=== PATIENT | female | born 1995 | race Caucasian/White ===

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

== ENCOUNTER 2017-02-10 17:32 | Emergency (ER) | payer SELFPAY ==
--- NOTE | 2017-02-10 17:51 | ED NURSING NOTES ---
Clinical Report - Nurses [facility] [address] [place] [address] 02/10/2017 17:32 Patient: PARKER ALICIA V TRIAGE Triage time 17:30. Acuity: LEVEL 4. Chief Complaint: SKIN RASH. 17:42 02/10/17. Alert. No acute distress. SEPSIS SCREEN: Sepsis Screen. Negative (no infection suspected/documented). --17:43 Prabha Quinones R.N. 17:36 02/10/17. BP: 133/71. HR: 104. RR: 15. O2 saturation: 96%. Temp: 98.1 F. Pain level now: 03/23. --17:43 Prabha Quinones R.N. Weight: 47.6 kg stated. Height/Length: 60 inches Per Patient. BMI: 20.5. Growth Chart Percentile: Weight: 8.3%. Height/Length: 4.7%. --17:42 Prabha Quinones R.N. Medications None. --17:39 Prabha Quinones R.N. Allergies No Known Drug Allergy. --17:39 Prabha Quinones R.N. History Historian: patient. Arrived in police custody. Primary physician (Dr Almeida). Reported as generalized in location. Onset. (1 month ago). It is described as itchy and painful. ( patient states she has had MRSA before. She believes the rash she has is MRSA. She states the rash began on her neck when she was in correction and has since spread to the rest of her body.). Not burning. Treatment CATERING SERVER: (neosporin). PAST MEDICAL HX: Immunizations: status is unknown. ( Patient states she has not had a period since giving to her son 9 months ago.). SOCIAL HX: Light tobacco smoker- less than 1/2 a pack per day. History of drug use: heroin, methamphetamines. Recently used drugs yesterday. No alcohol use. FALL RISK ASSESSMENT: Fall risk assessment completed. No fall risk identified. NUTRITIONAL RISK ASSESSMENT: The nutritional risk assessment revealed no deficiencies. FUNCTIONAL ASSESSMENT: Functional assessment: no impairments noted. LEARNING NEEDS ASSESSMENT: The learning needs assessment revealed no barriers. ABUSE ASSESSMENT: Abuse assessment: (patient states she does not have a home. She stays with her mom and feels safe at her mom's home.). SKIN INTEGRITY ASSESSMENT: Skin integrity risk assessment completed. No skin integrity risk identified. --17:43 Prabha Quinones R.N. PROBLEMS: Laceration. Abscess. Felon. . UTI - Urinary Tract Infection. Substance Abuse. Suicide Attempt. Hypertension. Atypical Chest Pain. Drug Poisoning. Headache. Immunizations. LNMP - Last Normal Menstrual Period. --17:51 Prabha Quinones R.N. MRSA Infection. --17:52 Prabha Quinones R.N. ADDITIONAL SURGERIES: Throat surgery. --17:51 Prabha Quinones R.N. Interventions ID band on patient. To treatment room. --17:43 Prabha Quinones R.N. PHYSICAL ASSESSMENT 17:45 02/10/17. Ambulatory to room. GENERAL / NEURO / PSYCH: Alert. The patient does not appear to be in acute distress. Oriented X 4. HEENT: Mucous membranes are pink. RESPIRATORY: Respirations not labored. CVS: Capillary refill less than 2 seconds. SKIN: Skin is warm and dry. Generalized vesicular, urticarial, crusting, excoriated skin rash with an erythematous base present. --17:45 Prabha Quinones R.N. NURSING PROGRESS NOTES 17:45 02/10/17. Two patient identifiers checked. Call light placed in reach. Side rails up x 2. Bed placed in lowest position. Brakes of bed on. ( Patient has cuff on L wrist placed by police shift commander). --17:45 Prabha Quinones R.N. DISPOSITION / DISCHARGE 17:57 02/10/17. No learning barriers present. Discharge instructions provided and reviewed with the patient. Reviewed warnings. Reviewed medication(s). Treatments reviewed. Patient verbalized understanding. Written instructions provided in Korean. The patient was discharged by the nurse practitioner. She was discharged home and accompanied by a police escort. She left the Emergency Department ambulatory and via police department vehicle. --17:58 Prabha Quinones R.N. 17:36 02/10/17. BP: 133/71. HR: 104. RR: 15. O2 saturation: 96%. Temp: 98.1 F. Pain level now: 03/23. --17:58 Prabha Quinones R.N. Locked/Released at 02/10/2017 18:01 by Prabha Quinones R.N.
--- NOTE | 2017-02-10 17:51 | ED NURSING NOTES ---
Clinical Report - Nurses [facility] [address] [place] [address] 02/10/2017 17:32 Patient: PARKER ALICIA V TRIAGE Triage time 17:30. Acuity: LEVEL 4. Chief Complaint: SKIN RASH. 17:42 02/10/17. Alert. No acute distress. SEPSIS SCREEN: Sepsis Screen. Negative (no infection suspected/documented). --17:43 Prabha Quinones R.N. 17:36 02/10/17. BP: 133/71. HR: 104. RR: 15. O2 saturation: 96%. Temp: 98.1 F. Pain level now: 03/23. --17:43 Prabha Quinones R.N. Weight: 47.6 kg stated. Height/Length: 60 inches Per Patient. BMI: 20.5. Growth Chart Percentile: Weight: 8.3%. Height/Length: 4.7%. --17:42 Prabha Quinones R.N. Medications None. --17:39 Prabha Quinones R.N. Allergies No Known Drug Allergy. --17:39 Prabha Quinones R.N. History Historian: patient. Arrived in police custody. Primary physician (Dr Almeida). Reported as generalized in location. Onset. (1 month ago). It is described as itchy and painful. ( patient states she has had MRSA before. She believes the rash she has is MRSA. She states the rash began on her neck when she was in [facility] and has since spread to the rest of her body.). Not burning. Treatment CLOUD SERVICES ARCHITECT: (neosporin). PAST MEDICAL HX: Immunizations: status is unknown. ( Patient states she has not had a period since giving to her son 9 months ago.). SOCIAL HX: Light tobacco smoker- less than 1/2 a pack per day. History of drug use: heroin, methamphetamines. Recently used drugs yesterday. No alcohol use. FALL RISK ASSESSMENT: Fall risk assessment completed. No fall risk identified. NUTRITIONAL RISK ASSESSMENT: The nutritional risk assessment revealed no deficiencies. FUNCTIONAL ASSESSMENT: Functional assessment: no impairments noted. LEARNING NEEDS ASSESSMENT: The learning needs assessment revealed no barriers. ABUSE ASSESSMENT: Abuse assessment: (patient states she does not have a home. She stays with her mom and feels safe at her mom's home.). SKIN INTEGRITY ASSESSMENT: Skin integrity risk assessment completed. No skin integrity risk identified. --17:43 Prabha Quinones R.N. PROBLEMS: Laceration. Abscess. Felon. . UTI - Urinary Tract Infection. Substance Abuse. Suicide Attempt. Hypertension. Atypical Chest Pain. Drug Poisoning. Headache. Immunizations. LNMP - Last Normal Menstrual Period. --17:51 Prabha Quinones R.N. MRSA Infection. --17:52 Prabha Quinones R.N. ADDITIONAL SURGERIES: Throat surgery. --17:51 Prabha Quinones R.N. Interventions ID band on patient. To treatment room. --17:43 Prabha Quinones R.N. PHYSICAL ASSESSMENT 17:45 02/10/17. Ambulatory to room. GENERAL / NEURO / PSYCH: Alert. The patient does not appear to be in acute distress. Oriented X 4. HEENT: Mucous membranes are pink. RESPIRATORY: Respirations not labored. CVS: Capillary refill less than 2 seconds. SKIN: Skin is warm and dry. Generalized vesicular, urticarial, crusting, excoriated skin rash with an erythematous base present. --17:45 Prabha Quinones R.N. NURSING PROGRESS NOTES 17:45 02/10/17. Two patient identifiers checked. Call light placed in reach. Side rails up x 2. Bed placed in lowest position. Brakes of bed on. ( Patient has cuff on L wrist placed by police officer crime prevention). --17:45 Prabha Quinones R.N. DISPOSITION / DISCHARGE 17:57 02/10/17. No learning barriers present. Discharge instructions provided and reviewed with the patient. Reviewed warnings. Reviewed medication(s). Treatments reviewed. Patient verbalized understanding. Written instructions provided in Czech. The patient was discharged by the nurse practitioner. She was discharged home and accompanied by a police escort. She left the Emergency Department ambulatory and via police department vehicle. --17:58 Prabha Quinones R.N. 17:36 02/10/17. BP: 133/71. HR: 104. RR: 15. O2 saturation: 96%. Temp: 98.1 F. Pain level now: 03/23. --17:58 Prabha Quinones R.N. Locked/Released at 02/10/2017 18:01 by Prabha Quinones R.N.
--- NOTE | 2017-02-10 17:51 | ED CLINICAL REPORT ---
Clinical Report - Physicians/Mid Levels [facility] [address] [place] [address] 02/10/2017 17:32 Patient: PARKER ALICIA V Time Seen: 17:45; initial patient contact, initial documentation, patient care assumed. Arrived- In handcuffs. Police present. Historian- patient. HISTORY OF PRESENT ILLNESS Chief Complaint: SKIN RASH. This started about 1 months ago and is still present. It is described as itchy and painful. It has been generalized in location. No cause has been identified. Similar symptoms previously: Frequently, as bad. Recent medical care: Not recently seen/assessed. REVIEW OF SYSTEMS No fever. All systems otherwise negative, except as recorded above. PAST HISTORY See nurses notes. PROBLEMS: UTI - Urinary Tract Infection. Substance Abuse. Suicide Attempt. Hypertension. Atypical Chest Pain. Drug Poisoning. Headache. --21:51 Annie Ness R.N. ADDITIONAL SURGERIES: Throat surgery. --21:51 Annie Ness R.N. SOCIAL HISTORY Light tobacco smoker. Occasional alcohol use. History of heavy IV drug use: heroin, methamphetamines. Recently used drugs. No recent travel. Is a local resident. FAMILY HISTORY Negative. ADDITIONAL NOTES The nursing notes have been reviewed with agreement regarding the chief complaint, HPI, ROS, PMH and patient medications and allergies. PHYSICAL EXAM Vital Signs: 02/10/2017 17:36 BP: 133/71. HR: 104. RR: 15. O2 saturation: 96%. Temp: 98.1 F. Pain level now: 6/10. Have been reviewed as abnormal and appear to be correct. Blood pressure normal. Tachycardic. Respiratory rate normal. Temperature normal. Oxygen saturation normal. Appearance: Alert. Oriented X3. No acute distress. Eyes: Pupils equal, round and reactive to light. Conjunctivae and eyelids normal. ENT: Ears normal. Nose normal. Pharynx normal. Neck: Neck supple. Respiratory: No respiratory distress. Skin: Skin warm and dry. Normal skin color. Rash present. Normal skin turgor. Generalized moderate, erythematous, macular, papular, crusting skin rash with an erythematous base present- multiple scabs and yellow crusts noted on face, neck, trunk, arms, legs with excoriations and iv track fox. Extremities: Normal external inspection. Extremities nontender. Neuro: Oriented X 3. No motor deficit. No sensory deficit. PROGRESS AND PROCEDURES Patient counseled in person regarding the patient's stable condition and diagnosis. Differential Diagnosis: Other possible considerations: substance abuse, scabies, mrsa, cellulitis, insect bites/stings, abscess, fungus, dermatititis. Above considerations are based on history and physical exam. Differential diagnosis was discussed with patient. Disposition: Discharged home in good and unchanged condition (17:51). Condition: good and stable. CLINICAL IMPRESSION Nonbullous impetigo INSTRUCTIONS (patient is medically cleared to go with police to shelter). Warnings: GENERAL WARNINGS: Return or contact your physician immediately if your condition worsens or changes unexpectedly, if not improving as expected, or if other problems arise. Specifically return if problem worsens. Prescription Medications: Bactrim DS 800 mg / 160 mg: take 1 tablet orally every 12 hours for 10 days. No refill. Bactroban 2% ointment: apply small amount to affected area three times daily for 5 days. Dispense twenty-two (22) grams. No refills. Substitution is permissible. Follow-up: Follow up with your doctor in about five days as needed. Call for an appointment. Summary of care provided to patient. Understanding of the discharge instructions verbalized by patient. (Electronically signed by Shey Almazan A.R.N.P. 02/10/2017 18:21)
--- NOTE | 2017-02-10 18:21 | ED DISCHARGE INSTRUCTIONS ---
Patient: PARKER ALICIA V General Instructions [facility] VisitID: [id number] [place] [address] 21y, F Registration Date/Time: 02/10/2017 Nonbullous impetigo INSTRUCTIONS (patient is medically cleared to go with police to assisted). Warnings: GENERAL WARNINGS: Return or contact your physician immediately if your condition worsens or changes unexpectedly, if not improving as expected, or if other problems arise. Specifically return if problem worsens. Prescription Medications: Bactrim DS 800 mg / 160 mg: take 1 tablet orally every 12 hours for 10 days. No refill. Bactroban 2% ointment: apply small amount to affected area three times daily for 5 days. Dispense twenty-two (22) grams. No refills. Substitution is permissible. Follow-up: Follow up with your doctor in about five days as needed. Call for an appointment. Summary of care provided to patient. Understanding of the discharge instructions verbalized by patient. ADDITIONAL INFORMATION Impetigo Impetigo is the name for a bacterial infection of the skin. It is common in children. It may start as an infected insect bite or scratch and spread rapidly to other areas of the body. It is contagious and can be given to other children by touching. The sores usually have a gutierrez brown crust and grow gradually larger as they spread. Impetigo requires treatment with an antibiotic. Home care The following guidelines will help you care for your infection at home: Trim fingernails and cover sores with an adhesive bandage if necessary to prevent scratching. Picking at the sores may leave a scar. Wash hands (yours and your child's) often. This will avoid spreading the infection to other parts of the body and to other children. Do not let your child share washcloths, towels, pillows, sheets, or clothes with others. Wash these items in hot water before using again. The sores should be washed three times a day with soap and water. Use a washcloth to scrub the sores and remove the crust. Then apply an antibacterial cream as directed. If antibiotic pills or liquid was prescribed, be sure your child takes all the medicine until it is gone. Your child should stay out of school until completing two full days of antibiotic treatment. Use acetaminophen for fever, fussiness or discomfort, unless another medicine was prescribed. In infants over six months of age, you may use ibuprofen instead of acetaminophen. If your child has chronic liver or kidney disease or has ever had a stomach ulcer or GI bleeding, talk with your doctor before using these medicines. (Aspirin should never be used in anyone under 18 years of age who is ill with a fever. It may cause severe liver damage. Follow-up care Follow up with your doctor or this facility if the sores continue to spread after three days of treatment. It will take about 710 days to heal completely. When to seek medical care Get prompt medical attention if any of the following occur: Increasing number of sores or spreading areas of redness after two days of treatment with antibiotics Increasing swelling, or pain Fever of 100.4F (38C) oral or 101.4F (38.5C) rectal or higher, not better with fever medication Increased amounts of fluid or pus coming from the sores Unusual drowsiness, weakness, or change in behavior Loss of appetite or vomiting Cellulitis You have an infection of the skin known as cellulitis. This usually starts with a scrape, cut, insect bite, blister or other opening in the skin which becomes infected. This is a serious condition. It must be watched closely to be sure the infection is not spreading. With antibiotic treatment, the size of the red area will gradually shrink in size until the skin returns to normal. This will take 7-10 days. The red area should never increase in size once the antibiotic medicine has been started. Occasionally, an infection will be resistant to one antibiotic and another one will have to be used. Home Care: 1) Limit the use of the affected part, since excess movement can cause the infection to spread. 2) If the infection is on your leg, walk as little as possible during the first few days of the treatment. Keep your leg elevated while sitting. This will reduce swelling. 3) Take all of the antibiotic medicine exactly as directed until it is gone. Be careful not to miss any doses, especially during the first seven days. Follow Up with your doctor or this facility as directed. Check the infected area daily for the warning signs listed below. Get Prompt Medical Attention if any of the following occur: -- Spreading area of redness -- Increasing swelling or pain -- Appearance of pus or drainage -- Fever over 100.4 F (38.0 C) oral, or over 101.4 F (38.6 C) rectal, after two days on antibiotics Sulfamethoxazole, Trimethoprim Oral tablet What is this medicine? SULFAMETHOXAZOLE; TRIMETHOPRIM or SMX-TMP (suhl fuh meth OK jesse zohl; trye METH oh prim) is a combination of a sulfonamide antibiotic and a second antibiotic, trimethoprim. It is used to treat or prevent certain kinds of bacterial infections. It will not work for colds, flu, or other viral infections. How should I use this medicine? Take this medicine by mouth with a full glass of water. Follow the directions on the prescription label. Take your medicine at regular intervals. Do not take it more often than directed. Do not skip doses or stop your medicine early. Talk to your embroiderer regarding the use of this medicine in children. Special care may be needed. This medicine has been used in children as young as 2 months of age. What side effects may I notice from receiving this medicine? Side effects that you should report to your doctor or health behavioral health care manager as soon as possible: allergic reactions like skin rash or hives, swelling of the face, lips, or tongue breathing problems fever or chills, sore throat irregular heartbeat, chest pain joint or muscle pain pain or difficulty passing urine red pinpoint spots on skin redness, blistering, peeling or loosening of the skin, including inside the mouth unusual bleeding or bruising unusually weak or tired yellowing of the eyes or skin Side effects that usually do not require medical attention (report to your doctor or health behavioral health care manager if they continue or are bothersome): diarrhea dizziness headache loss of appetite nausea, vomiting nervousness What may interact with this medicine? Do not take this medicine with any of the following medications: aminobenzoate potassium dofetilide metronidazole This medicine may also interact with the following medications: VIKAS inhibitors like benazepril, enalapril, lisinopril, and ramipril cyclosporine digoxin diuretics indomethacin medicines for diabetes methenamine methotrexate phenytoin potassium supplements pyrimethamine sulfinpyrazone tricyclic antidepressants warfarin What if I miss a dose? If you miss a dose, take it as soon as you can. If it is almost time for your next dose, take only that dose. Do not take double or extra doses. Where should I keep my medicine? Keep out of the reach of children. Store at room temperature between 20 to 25 degrees C (68 to 77 degrees F). Protect from light. Throw away any unused medicine after the expiration date. What should I tell my health care provider before I take this medicine? They need to know if you have any of these conditions: anemia asthma being treated with anticonvulsants if you frequently drink alcohol containing drinks kidney disease liver disease low level of folic acid or [id number] dehydrogenase poor nutrition or malabsorption porphyria severe allergies thyroid disorder an unusual or allergic reaction to sulfamethoxazole, trimethoprim, sulfa drugs, other medicines, foods, dyes, or preservatives or trying to get breast-feeding What should I watch for while using this medicine? Tell your doctor or health behavioral health care manager if your symptoms do not improve. Drink several glasses of water a day to reduce the risk of kidney problems. Do not treat diarrhea with over the counter products. Contact your doctor if you have diarrhea that lasts more than 2 days or if it is severe and watery. This medicine can make you more sensitive to the sun. Keep out of the sun. If you cannot avoid being in the sun, wear protective clothing and use a sunscreen. Do not use sun lamps or tanning beds/booths. Mupirocin Topical ointment What is this medicine? MUPIROCIN (myoo PEER oh sin) is an antibiotic. It is used on the skin to treat skin infections. How should I use this medicine? This medicine is for external use only. Follow the directions on the prescription label. Wash your hands before and after use. Before applying, wash the affected area with mild soap and water and pat dry. Apply a small amount to the affected area and rub gently. You can cover the area with a gauze dressing. Do not get this medicine in your eyes. If you do, rinse out with plenty of cool tap water. Do not use your medicine more often than directed. Finish the full course of medicine prescribed by your doctor or health behavioral health care manager even if you think your condition is better. Do not use over large areas of burnt skin. Talk to your embroiderer regarding the use of this medicine in children. Special care may be needed. What side effects may I notice from receiving this medicine? Side effects that you should report to your doctor or health behavioral health care manager as soon as possible: skin rash, redness, continued swelling, burning, itching, stinging, or pain Side effects that usually do not require medical attention (report to your doctor or health behavioral health care manager if they continue or are bothersome): dry skin, itching What may interact with this medicine? Interactions are not expected. Do not use any other skin products on the affected area without telling your doctor or health behavioral health care manager. What if I miss a dose? If you miss a dose, take it as soon as you can. If it is almost time for your next dose, take only that dose. Do not take double or extra doses. Where should I keep my medicine? Keep out of the reach of children. Store at room temperature between 20 and 25 degrees C (68 and 77 degrees F). Throw away any unused medicine after the expiration date. What should I tell my health care provider before I take this medicine? They need to know if you have any of these conditions: an unusual or allergic reaction to mupirocin, polyethylene glycol (PEG), or other topical antibiotic medicine or trying to get breast-feeding What should I watch for while using this medicine? Tell your doctor or health behavioral health care manager if your skin condition does not begin to improve within 3 to 5 days. You have been given the following additional information: Impetigo (Child) Cellulitis Sulfamethoxazole, Trimethoprim Oral tablet Mupirocin Topical ointment (Electronically signed by Shey Almazan A.R.N.P. 02/10/2017 18:21)
--- NOTE | 2017-02-10 18:21 | ED DISCHARGE INSTRUCTIONS ---
Patient: PARKER ALICIA V General Instructions [facility] VisitID: [id number] [place] [address] 21y, F Registration Date/Time: 02/10/2017 Nonbullous impetigo INSTRUCTIONS (patient is medically cleared to go with police to skilled nursing). Warnings: GENERAL WARNINGS: Return or contact your physician immediately if your condition worsens or changes unexpectedly, if not improving as expected, or if other problems arise. Specifically return if problem worsens. Prescription Medications: Bactrim DS 800 mg / 160 mg: take 1 tablet orally every 12 hours for 10 days. No refill. Bactroban 2% ointment: apply small amount to affected area three times daily for 5 days. Dispense twenty-two (22) grams. No refills. Substitution is permissible. Follow-up: Follow up with your doctor in about five days as needed. Call for an appointment. Summary of care provided to patient. Understanding of the discharge instructions verbalized by patient. ADDITIONAL INFORMATION Impetigo Impetigo is the name for a bacterial infection of the skin. It is common in children. It may start as an infected insect bite or scratch and spread rapidly to other areas of the body. It is contagious and can be given to other children by touching. The sores usually have a gutierrez brown crust and grow gradually larger as they spread. Impetigo requires treatment with an antibiotic. Home care The following guidelines will help you care for your infection at home: Trim fingernails and cover sores with an adhesive bandage if necessary to prevent scratching. Picking at the sores may leave a scar. Wash hands (yours and your child's) often. This will avoid spreading the infection to other parts of the body and to other children. Do not let your child share washcloths, towels, pillows, sheets, or clothes with others. Wash these items in hot water before using again. The sores should be washed three times a day with soap and water. Use a washcloth to scrub the sores and remove the crust. Then apply an antibacterial cream as directed. If antibiotic pills or liquid was prescribed, be sure your child takes all the medicine until it is gone. Your child should stay out of school until completing two full days of antibiotic treatment. Use acetaminophen for fever, fussiness or discomfort, unless another medicine was prescribed. In infants over six months of age, you may use ibuprofen instead of acetaminophen. If your child has chronic liver or kidney disease or has ever had a stomach ulcer or GI bleeding, talk with your doctor before using these medicines. (Aspirin should never be used in anyone under 18 years of age who is ill with a fever. It may cause severe liver damage. Follow-up care Follow up with your doctor or this facility if the sores continue to spread after three days of treatment. It will take about 710 days to heal completely. When to seek medical care Get prompt medical attention if any of the following occur: Increasing number of sores or spreading areas of redness after two days of treatment with antibiotics Increasing swelling, or pain Fever of 100.4F (38C) oral or 101.4F (38.5C) rectal or higher, not better with fever medication Increased amounts of fluid or pus coming from the sores Unusual drowsiness, weakness, or change in behavior Loss of appetite or vomiting Cellulitis You have an infection of the skin known as cellulitis. This usually starts with a scrape, cut, insect bite, blister or other opening in the skin which becomes infected. This is a serious condition. It must be watched closely to be sure the infection is not spreading. With antibiotic treatment, the size of the red area will gradually shrink in size until the skin returns to normal. This will take 7-10 days. The red area should never increase in size once the antibiotic medicine has been started. Occasionally, an infection will be resistant to one antibiotic and another one will have to be used. Home Care: 1) Limit the use of the affected part, since excess movement can cause the infection to spread. 2) If the infection is on your leg, walk as little as possible during the first few days of the treatment. Keep your leg elevated while sitting. This will reduce swelling. 3) Take all of the antibiotic medicine exactly as directed until it is gone. Be careful not to miss any doses, especially during the first seven days. Follow Up with your doctor or this facility as directed. Check the infected area daily for the warning signs listed below. Get Prompt Medical Attention if any of the following occur: -- Spreading area of redness -- Increasing swelling or pain -- Appearance of pus or drainage -- Fever over 100.4 F (38.0 C) oral, or over 101.4 F (38.6 C) rectal, after two days on antibiotics Sulfamethoxazole, Trimethoprim Oral tablet What is this medicine? SULFAMETHOXAZOLE; TRIMETHOPRIM or SMX-TMP (suhl fuh meth OK jesse zohl; trye METH oh prim) is a combination of a sulfonamide antibiotic and a second antibiotic, trimethoprim. It is used to treat or prevent certain kinds of bacterial infections. It will not work for colds, flu, or other viral infections. How should I use this medicine? Take this medicine by mouth with a full glass of water. Follow the directions on the prescription label. Take your medicine at regular intervals. Do not take it more often than directed. Do not skip doses or stop your medicine early. Talk to your sand shoveler regarding the use of this medicine in children. Special care may be needed. This medicine has been used in children as young as 2 months of age. What side effects may I notice from receiving this medicine? Side effects that you should report to your doctor or health infant caregiver as soon as possible: allergic reactions like skin rash or hives, swelling of the face, lips, or tongue breathing problems fever or chills, sore throat irregular heartbeat, chest pain joint or muscle pain pain or difficulty passing urine red pinpoint spots on skin redness, blistering, peeling or loosening of the skin, including inside the mouth unusual bleeding or bruising unusually weak or tired yellowing of the eyes or skin Side effects that usually do not require medical attention (report to your doctor or health infant caregiver if they continue or are bothersome): diarrhea dizziness headache loss of appetite nausea, vomiting nervousness What may interact with this medicine? Do not take this medicine with any of the following medications: aminobenzoate potassium dofetilide metronidazole This medicine may also interact with the following medications: VIKAS inhibitors like benazepril, enalapril, lisinopril, and ramipril cyclosporine digoxin diuretics indomethacin medicines for diabetes methenamine methotrexate phenytoin potassium supplements pyrimethamine sulfinpyrazone tricyclic antidepressants warfarin What if I miss a dose? If you miss a dose, take it as soon as you can. If it is almost time for your next dose, take only that dose. Do not take double or extra doses. Where should I keep my medicine? Keep out of the reach of children. Store at room temperature between 20 to 25 degrees C (68 to 77 degrees F). Protect from light. Throw away any unused medicine after the expiration date. What should I tell my health care provider before I take this medicine? They need to know if you have any of these conditions: anemia asthma being treated with anticonvulsants if you frequently drink alcohol containing drinks kidney disease liver disease low level of folic acid or [id number] dehydrogenase poor nutrition or malabsorption porphyria severe allergies thyroid disorder an unusual or allergic reaction to sulfamethoxazole, trimethoprim, sulfa drugs, other medicines, foods, dyes, or preservatives or trying to get breast-feeding What should I watch for while using this medicine? Tell your doctor or health infant caregiver if your symptoms do not improve. Drink several glasses of water a day to reduce the risk of kidney problems. Do not treat diarrhea with over the counter products. Contact your doctor if you have diarrhea that lasts more than 2 days or if it is severe and watery. This medicine can make you more sensitive to the sun. Keep out of the sun. If you cannot avoid being in the sun, wear protective clothing and use a sunscreen. Do not use sun lamps or tanning beds/booths. Mupirocin Topical ointment What is this medicine? MUPIROCIN (myoo PEER oh sin) is an antibiotic. It is used on the skin to treat skin infections. How should I use this medicine? This medicine is for external use only. Follow the directions on the prescription label. Wash your hands before and after use. Before applying, wash the affected area with mild soap and water and pat dry. Apply a small amount to the affected area and rub gently. You can cover the area with a gauze dressing. Do not get this medicine in your eyes. If you do, rinse out with plenty of cool tap water. Do not use your medicine more often than directed. Finish the full course of medicine prescribed by your doctor or health infant caregiver even if you think your condition is better. Do not use over large areas of burnt skin. Talk to your sand shoveler regarding the use of this medicine in children. Special care may be needed. What side effects may I notice from receiving this medicine? Side effects that you should report to your doctor or health infant caregiver as soon as possible: skin rash, redness, continued swelling, burning, itching, stinging, or pain Side effects that usually do not require medical attention (report to your doctor or health infant caregiver if they continue or are bothersome): dry skin, itching What may interact with this medicine? Interactions are not expected. Do not use any other skin products on the affected area without telling your doctor or health infant caregiver. What if I miss a dose? If you miss a dose, take it as soon as you can. If it is almost time for your next dose, take only that dose. Do not take double or extra doses. Where should I keep my medicine? Keep out of the reach of children. Store at room temperature between 20 and 25 degrees C (68 and 77 degrees F). Throw away any unused medicine after the expiration date. What should I tell my health care provider before I take this medicine? They need to know if you have any of these conditions: an unusual or allergic reaction to mupirocin, polyethylene glycol (PEG), or other topical antibiotic medicine or trying to get breast-feeding What should I watch for while using this medicine? Tell your doctor or health infant caregiver if your skin condition does not begin to improve within 3 to 5 days. You have been given the following additional information: Impetigo (Child) Cellulitis Sulfamethoxazole, Trimethoprim Oral tablet Mupirocin Topical ointment (Electronically signed by Shey Almazan A.R.N.P. 02/10/2017 18:21)
--- NOTE | 2017-02-10 18:21 | ED MED RECONCILIATION SUMMARY ---
Patient: PARKER ALICIA V Medication Reconciliation Report VisitID: [id number] [place] [address] 21y, F Registration Date/Time: 02/10/2017 Weight: 47.6 kg Height/Length: 60 in. BMI: 20.5 ALLERGIES: No Known Drug Allergy The patient's Home Medications are listed below: NONE. The source(s) of the original Home Medication information: Not obtained. The following Medications were given to the patient in the Emergency Department: None. The following Medications were prescribed to the patient: Bactrim DS 800 mg / 160 mg: take 1 tablet orally every 12 hours for 10 days. No refill. -- Shey Almazan A.R.N.P. Bactroban 2% ointment: apply small amount to affected area three times daily for 5 days. Dispense twenty-two (22) grams. No refills. Substitution is permissible. -- Shey Almazan A.R.N.P.
--- NOTE | 2017-02-10 18:21 | ED MAR SUMMARY ---
..... Medication Administration Record [facility] [address] [place], [place] [id number] Patient: PARKER ALICIA V Visit ID: [id number] 21y, F Weight: 47.6 kg Height/Length: 60 in BMI: 20.5 ALLERGIES: No Known Drug Allergy
--- NOTE | 2017-02-10 18:21 | ED MAR SUMMARY ---
..... Medication Administration Record [facility] [address] [place], [place] [id number] Patient: PARKER ALICIA V Visit ID: [id number] 21y, F Weight: 47.6 kg Height/Length: 60 in BMI: 20.5 ALLERGIES: No Known Drug Allergy
--- NOTE | 2017-02-10 18:21 | ED MED RECONCILIATION SUMMARY ---
Patient: PARKER ALICIA V Medication Reconciliation Report [facility] VisitID: [id number] [place] [address] 21y, F Registration Date/Time: 02/10/2017 Weight: 47.6 kg Height/Length: 60 in. BMI: 20.5 ALLERGIES: No Known Drug Allergy The patient's Home Medications are listed below: NONE. The source(s) of the original Home Medication information: Not obtained. The following Medications were given to the patient in the Emergency Department: None. The following Medications were prescribed to the patient: Bactrim DS 800 mg / 160 mg: take 1 tablet orally every 12 hours for 10 days. No refill. -- Shey Almazan A.R.N.P. Bactroban 2% ointment: apply small amount to affected area three times daily for 5 days. Dispense twenty-two (22) grams. No refills. Substitution is permissible. -- Shey Almazan A.R.N.P.
== END 2017-02-10 17:57 | disposition home or self-care (01) ==
LOC: ED SRH 17:32
DX: L01.01 Non-bullous impetigo (principal); I10 Essential (primary) hypertension; F17.210 Nicotine dependence, cigarettes, uncomplicated; F19.10 Other psychoactive substance abuse, uncomplicated